=== PATIENT | female | born 1970 | race Two or more races ===

== ENCOUNTER → 2017-11-24 | Outpatient (CLI) | payer OTHER ==
[~2017-11-24] MED LIST: ALBUTEROL1.25 MG/3 IH; CARDIZEM120 MG; CEPHALEXIN500 MG PO; DOLOGEN CAPLET1 EACH PO; HYDROCODONE-CHLORPH SUSP 115ML PO; IOPHEN DM-100 MG/5 M PO; MEDROL4 MG PO; MUCINEX600 MG; PROVENTIL17 G1; SINGULAIR10 MG; SINGULAIR10 MG PO; ULTRACET PO; ZYNCOF 20-400120 ML PO
== END | disposition home or self-care (01) ==
LOC: RAD 501 13:02
DX: J44.1 Chronic obstructive pulmonary disease with (acute) exacerbation (principal)

== ENCOUNTER 2017-12-06 15:48 | Emergency (ER) | payer OTHER ==
[~2017-12-06] VITALS: Ht 167.6 cm; Wt 86.2 kg
== END 2017-12-06 21:47 | disposition home or self-care (01) ==
LOC: ER 15:48
DX: L03.115 Cellulitis of right lower limb (principal); R60.0 Localized edema

== ENCOUNTER 2017-12-08 11:39 | Outpatient (CLI) | payer OTHER | END 2017-12-08 12:02 | disposition home or self-care (01) | LOC: NUCLEAR 11:39 | DX: I82.401 Acute embolism and thrombosis of unspecified deep veins of right lower extremity (principal) ==

== ENCOUNTER 2017-12-10 15:19 | Emergency (ER) | payer OTHER ==
[~2017-12-10] VITALS: Ht 167.6 cm; Wt 88.0 kg
== END 2017-12-10 20:38 | disposition home or self-care (01) ==
LOC: ER 15:19
DX: M25.561 Pain in right knee (principal)

== ENCOUNTER 2017-12-11 09:55 | Outpatient (CLI) | payer OTHER | END 2017-12-11 12:20 | disposition home or self-care (01) | LOC: MRI 09:55 | DX: S86.919A Strain of unspecified muscle(s) and tendon(s) at lower leg level, unspecified leg, initial encounter (principal); M23.8X1 Other internal derangements of right knee | CPT/HCPCS: 73722 ==

== ENCOUNTER 2018-02-02 13:12 | Outpatient (CLI) | payer OTHER | END 2018-02-02 13:23 | disposition home or self-care (01) | LOC: LAB 13:12 | DX: M31.30 Wegener's granulomatosis without renal involvement (principal) ==

== ENCOUNTER → 2018-03-09 | Emergency (ER) | payer OTHER ==
[~2018-03-09] VITALS: Ht 167.6 cm; Wt 88.0 kg
[~2018-03-09] MED LIST changes: +CIPRO500 MG PO; +KETO10TA2 PO; +PROTONIX40 MG; +TRELEGY ELLIPT1 EACH; +ZANTAC150 M3
== END | disposition home or self-care (01) ==
LOC: ER 14:23
DX: N39.0 Urinary tract infection, site not specified (principal); R10.32 Left lower quadrant pain

== ENCOUNTER 2018-03-23 12:01 | Outpatient (CLI) | payer OTHER | END 2018-03-23 15:45 | disposition home or self-care (01) | LOC: MRI 12:01 | DX: M25.561 Pain in right knee (principal); Z96.659 Presence of unspecified artificial knee joint | CPT/HCPCS: 73721 ==

== ENCOUNTER 2018-04-21 14:33 | Outpatient (CLI) | payer OTHER | END 2018-04-21 15:26 | disposition home or self-care (01) | LOC: RAD 501 14:33 | DX: M16.11 Unilateral primary osteoarthritis, right hip (principal); M16.12 Unilateral primary osteoarthritis, left hip ==

== ENCOUNTER → 2018-04-25 11:42 | Outpatient (CLI) | payer OTHER | END | disposition home or self-care (01) | LOC: LAB 11:42 | DX: M32.19 Other organ or system involvement in systemic lupus erythematosus (principal); A69.20 Lyme disease, unspecified ==

== ENCOUNTER 2018-05-22 16:22 | Emergency (ER) | payer OTHER ==
[~2018-05-22] VITALS: Ht 167.6 cm; Wt 88.5 kg
[2018-05-22] MEDS ORDERED: PREDNISONE5 M1 (16:48)
== END 2018-05-22 23:54 | disposition home or self-care (01) ==
LOC: ER 16:22
DX: R06.02 Shortness of breath (principal)

== ENCOUNTER 2018-06-12 11:50 | Outpatient (CLI) | payer OTHER ==
[~2018-06-12 11:50] MED LIST changes: +PREDNISONE5 M1
== END 2018-06-12 11:57 | disposition home or self-care (01) ==
LOC: LAB 11:50
DX: M32.8 Other forms of systemic lupus erythematosus (principal); L03.818 Cellulitis of other sites

== ENCOUNTER 2018-06-25 09:23 | Outpatient (CLI) | payer OTHER | END 2018-06-25 09:37 | disposition home or self-care (01) | LOC: LAB 09:23 | DX: J45.998 Other asthma (principal); L08.89 Other specified local infections of the skin and subcutaneous tissue; Z13.0 Encounter for screening for diseases of the blood and blood-forming organs and certain disorders involving the immune mechanism; Z13.29 Encounter for screening for other suspected endocrine disorder; Z13.220 Encounter for screening for lipoid disorders; Z22.322 Carrier or suspected carrier of Methicillin resistant Staphylococcus aureus ==

== ENCOUNTER 2018-07-01 10:26 | Outpatient (CLI) | payer OTHER | END 2018-07-01 10:38 | disposition home or self-care (01) | LOC: LAB 10:26 | DX: N91.2 Amenorrhea, unspecified (principal); R11.0 Nausea ==

== ENCOUNTER → 2018-07-14 | Outpatient (CLI) | payer OTHER | END | disposition home or self-care (01) | LOC: RAD 501 09:04 | DX: M54.2 Cervicalgia (principal) ==

== ENCOUNTER 2018-08-18 11:25 | Outpatient (CLI) | payer OTHER | END 2018-08-18 11:36 | disposition home or self-care (01) | LOC: RAD 501 11:25 | DX: J44.1 Chronic obstructive pulmonary disease with (acute) exacerbation (principal) ==

== ENCOUNTER 2018-09-16 12:18 | Outpatient (CLI) | payer OTHER | END 2018-09-16 17:00 | disposition home or self-care (01) | LOC: MRI 12:18 | DX: M54.2 Cervicalgia (principal); M25.562 Pain in left knee | CPT/HCPCS: 72141; 73721 ==

== ENCOUNTER 2018-09-16 16:16 | Outpatient (CLI) | payer OTHER | END 2018-09-16 19:18 | disposition home or self-care (01) | LOC: LAB 16:16 | DX: M32.19 Other organ or system involvement in systemic lupus erythematosus (principal); M06.89 Other specified rheumatoid arthritis, multiple sites; D89.1 Cryoglobulinemia; M31.30 Wegener's granulomatosis without renal involvement; K75.89 Other specified inflammatory liver diseases; I25.10 Atherosclerotic heart disease of native coronary artery without angina pectoris ==

== ENCOUNTER 2018-11-10 13:08 | Outpatient (CLI) | payer OTHER | END 2018-11-10 13:22 | disposition home or self-care (01) | LOC: RAD 501 13:08 | DX: M25.561 Pain in right knee (principal); M25.562 Pain in left knee ==

== ENCOUNTER 2018-12-09 08:19 | Outpatient (CLI) | payer OTHER | END 2018-12-09 08:41 | disposition home or self-care (01) | LOC: LAB 08:19 | DX: D68.8 Other specified coagulation defects (principal); E78.2 Mixed hyperlipidemia; N39.0 Urinary tract infection, site not specified; I10 Essential (primary) hypertension; E05.80 Other thyrotoxicosis without thyrotoxic crisis or storm; R07.89 Other chest pain ==

== ENCOUNTER 2018-12-12 08:43 | Outpatient (CLI) | payer OTHER | END 2018-12-12 08:45 | disposition home or self-care (01) | LOC: SONOGRAMA 08:43 | DX: E05.90 Thyrotoxicosis, unspecified without thyrotoxic crisis or storm (principal) ==

== ENCOUNTER 2019-03-01 08:14 | Outpatient (CLI) | payer OTHER | END 2019-03-01 08:26 | disposition home or self-care (01) | LOC: LAB 08:14 | DX: M32.19 Other organ or system involvement in systemic lupus erythematosus (principal); I25.10 Atherosclerotic heart disease of native coronary artery without angina pectoris ==

== ENCOUNTER 2019-03-11 20:38 | Emergency (ER) | payer OTHER ==
[~2019-03-11] VITALS: Ht 162.6 cm; Wt 88.5 kg
[2019-03-11] MEDS ORDERED: XOPENEX0.63 MG/3 (21:05)
== END 2019-03-11 22:37 | disposition home or self-care (01) ==
LOC: ER 20:38
DX: B34.9 Viral infection, unspecified (principal)

== ENCOUNTER 2019-03-17 09:37 | Outpatient (CLI) | payer OTHER ==
[~2019-03-17 09:37] MED LIST changes: +XOPENEX0.63 MG/3
== END 2019-03-17 09:48 | disposition home or self-care (01) ==
LOC: LAB 09:37
DX: N39.0 Urinary tract infection, site not specified (principal); E88.81 Metabolic syndrome and other insulin resistance; E03.8 Other specified hypothyroidism; E55.9 Vitamin D deficiency, unspecified; Z12.11 Encounter for screening for malignant neoplasm of colon; R19.09 Other intra-abdominal and pelvic swelling, mass and lump; R97.1 Elevated cancer antigen 125 [CA 125]; N95.1 Menopausal and female climacteric states

== ENCOUNTER → 2019-03-18 10:28 | Outpatient (CLI) | payer OTHER | END | disposition home or self-care (01) | LOC: LAB 10:28 | DX: N39.0 Urinary tract infection, site not specified (principal); E88.81 Metabolic syndrome and other insulin resistance; E03.8 Other specified hypothyroidism; N93.8 Other specified abnormal uterine and vaginal bleeding; N94.6 Dysmenorrhea, unspecified; E55.9 Vitamin D deficiency, unspecified; Z12.11 Encounter for screening for malignant neoplasm of colon; R19.09 Other intra-abdominal and pelvic swelling, mass and lump; R97.1 Elevated cancer antigen 125 [CA 125]; N95.1 Menopausal and female climacteric states ==

== ENCOUNTER 2019-03-30 11:32 | Outpatient (CLI) | payer OTHER | END 2019-03-30 12:25 | disposition home or self-care (01) | LOC: LAB 11:32 | DX: R19.8 Other specified symptoms and signs involving the digestive system and abdomen (principal) ==

== ENCOUNTER 2019-04-02 11:20 | Outpatient (CLI) | payer OTHER | END 2019-04-02 11:33 | disposition home or self-care (01) | LOC: LAB 11:20 | DX: R19.7 Diarrhea, unspecified (principal) ==

== ENCOUNTER 2019-05-13 15:04 | Emergency (ER) | payer OTHER ==
[~2019-05-13] VITALS: Ht 165.1 cm; Wt 77.6 kg
[2019-05-13] MEDS ORDERED: ATROVENT HFA12.9 GM (15:16)
== END 2019-05-13 22:14 | disposition home or self-care (01) ==
LOC: ER 15:04
DX: B34.9 Viral infection, unspecified (principal)

== ENCOUNTER 2019-08-17 12:33 | Outpatient (CLI) | payer OTHER ==
[~2019-08-17 12:33] MED LIST changes: +ATROVENT HFA12.9 GM
== END 2019-08-17 12:41 | disposition home or self-care (01) ==
LOC: LAB 12:33
DX: D72.1 Eosinophilia (principal); J11.1 Influenza due to unidentified influenza virus with other respiratory manifestations; J44.1 Chronic obstructive pulmonary disease with (acute) exacerbation

== ENCOUNTER 2019-08-24 15:16 | Emergency (ER) | payer OTHER ==
[~2019-08-24] VITALS: Ht 167.6 cm; Wt 77.1 kg
[2019-08-24] MEDS ORDERED: VOLTAREN100 GM (15:26)
[2019-08-24] MEDS ORDERED: TRILOGY (15:26)
[2019-08-24] MEDS ORDERED: ALEVE220 M1 (15:27)
[2019-08-24] MEDS ORDERED: LEVALBUTER0.63 MG/3 (15:27)
== END 2019-08-24 21:15 | disposition home or self-care (01) ==
LOC: ER 15:16
DX: R19.7 Diarrhea, unspecified (principal); J06.9 Acute upper respiratory infection, unspecified; M54.2 Cervicalgia

== ENCOUNTER 2019-08-30 12:06 | Outpatient (CLI) | payer OTHER ==
[~2019-08-30 12:06] MED LIST changes: +ALEVE220 M1; +LEVALBUTER0.63 MG/3; +TRILOGY; +VOLTAREN100 GM
== END 2019-08-30 13:00 | disposition home or self-care (01) ==
LOC: EDBD 12:06 → NUCLEAR 12:06
DX: E05.90 Thyrotoxicosis, unspecified without thyrotoxic crisis or storm (principal)
CPT/HCPCS: 78013; A9512

== ENCOUNTER 2019-09-07 10:01 | Outpatient (CLI) | payer OTHER | END 2019-09-07 17:00 | disposition home or self-care (01) | LOC: EDBD 10:01 → MRI 10:01 | DX: C71.8 Malignant neoplasm of overlapping sites of brain (principal) | CPT/HCPCS: 70545; 70552 ==

== ENCOUNTER → 2019-10-04 | Outpatient (CLI) | payer OTHER | END | disposition home or self-care (01) | LOC: RAD 12:37 | DX: M25.561 Pain in right knee (principal); M25.562 Pain in left knee ==

== ENCOUNTER 2019-12-17 15:41 | Emergency (ER) | payer OTHER ==
[~2019-12-17] VITALS: Ht 157.5 cm; Wt 77.1 kg
[2019-12-17] MEDS ORDERED: [UNRECOGNIZED DRUG - OTHER] PO (16:11)
== END 2019-12-17 18:43 | disposition home or self-care (01) ==
LOC: ER 15:41
DX: K57.90 Diverticulosis of intestine, part unspecified, without perforation or abscess without bleeding (principal); K76.0 Fatty (change of) liver, not elsewhere classified

== ENCOUNTER 2019-12-22 12:34 | Outpatient (CLI) | payer OTHER ==
[~2019-12-22 12:34] MED LIST changes: +[UNRECOGNIZED DRUG - OTHER] PO
== END 2019-12-22 12:43 | disposition home or self-care (01) ==
LOC: LAB 12:34
DX: N39.0 Urinary tract infection, site not specified (principal); B34.8 Other viral infections of unspecified site

== ENCOUNTER 2020-06-09 14:03 | Outpatient (CLI) | payer OTHER | END 2020-06-09 14:22 | disposition home or self-care (01) | LOC: TOM 14:03 | PROVIDERS: ATTEND Internal Medicine Pulmonary Disease | DX: R91.8 Other nonspecific abnormal finding of lung field (principal); I63.89 Other cerebral infarction ==

== ENCOUNTER 2020-06-09 14:12 | Outpatient (CLI) | payer OTHER | END 2020-06-09 14:16 | disposition home or self-care (01) | LOC: LAB 14:12 | PROVIDERS: ATTEND Internal Medicine Pulmonary Disease | DX: R05 Cough (principal); Z20.828 Contact with and (suspected) exposure to other viral communicable diseases; R06.02 Shortness of breath ==

== ENCOUNTER 2021-02-09 11:24 | Outpatient (CLI) | payer OTHER | END 2021-02-09 11:42 | disposition home or self-care (01) | LOC: RAD 11:24 → MRI 11:30 → RAD 11:42 | DX: M54.2 Cervicalgia (principal); M50.222 Other cervical disc displacement at C5-C6 level | CPT/HCPCS: 72141 ==

== ENCOUNTER 2021-02-20 11:01 | Outpatient (CLI) | payer OTHER | END 2021-02-20 11:15 | disposition home or self-care (01) | LOC: RAD 11:01 | PROVIDERS: ATTEND Neurological Surgery | DX: M48.02 Spinal stenosis, cervical region (principal) ==

== ENCOUNTER 2021-05-16 09:30 | Outpatient (CLI) | payer OTHER | END 2021-05-16 10:16 | disposition home or self-care (01) | LOC: ASH CLINIC 09:30 | PROVIDERS: ATTEND Internal Medicine Pulmonary Disease | DX: Z23 Encounter for immunization (principal); U07.1 COVID-19 ==

== ENCOUNTER 2021-05-24 11:00 | Outpatient (CLI) | payer OTHER | END 2021-05-24 11:08 | disposition home or self-care (01) | LOC: RAD 11:00 | PROVIDERS: ATTEND Internal Medicine Pulmonary Disease | DX: R07.89 Other chest pain (principal); U07.1 COVID-19 ==

== ENCOUNTER 2021-08-22 13:38 | Emergency (ER) | payer OTHER ==
[~2021-08-22] VITALS: Ht 167.6 cm; Wt 87.1 kg
[2021-08-22] MEDS ORDERED: PRED FORTE5 ML OP (14:01)
[2021-08-22] MEDS ORDERED: PROAIR HFA8.5 GM IH (14:01)
[2021-08-22] MEDS ORDERED: ZYRTEC10 M3 PO (14:02)
[2021-08-22] MEDS ORDERED: MOBIC7.5 MG PO (14:03)
[2021-08-22] MEDS ORDERED: DICLOFENAC SODI75 MG PO (18:06)
== END 2021-08-22 18:12 | disposition home or self-care (01) ==
LOC: ER 13:38
DX: M25.562 Pain in left knee (principal)

== ENCOUNTER 2021-11-22 07:30 | Inpatient (IN) | payer OTHER ==
[~2021-11-22] VITALS: Ht 167.6 cm; Wt 86.2 kg
[~2021-11-22 07:30] MED LIST changes: +DICLOFENAC SODI75 MG PO; +MOBIC7.5 MG PO; +PRED FORTE5 ML OP; +PROAIR HFA8.5 GM IH; +ZYRTEC10 M3 PO
[2021-11-27] MEDS ORDERED: SUCRALFATE1 GM (08:00)
[2021-11-27] MEDS ORDERED: FAMOTIDINE20 MG (08:00)
[2021-11-27] MEDS ORDERED: BUDESONIDE0.5 MG/21 (08:01)
[2021-11-27] MEDS ORDERED: VITAMIN D3125 MC1 (08:01)
[2021-11-27] MEDS ORDERED: FLONASE16 GM (08:01)
[2021-11-29] MEDS ORDERED: NORFLEX100MG PO (12:31)
[2021-11-29] MEDS ORDERED: GABAPENTIN100 MG PO (12:32)
[2021-11-29] MEDS ORDERED: XARELTO10 MG PO (12:33)
[2021-11-29] MEDS ORDERED: ULTRAM50 MG PO (12:33)
== END 2021-11-29 15:53 | DRG 470 ==
LOC: O/R 11-27 05:54 → SURH 11-27 06:15 → SURG 11-27 13:04 → O/R 11-27 16:27 → SURG 11-28 11:43
PROVIDERS: ADMIT Orthopaedic Surgery; ATTEND Orthopaedic Surgery
PROC: 0SRD0J9 Replacement of Left Knee Joint with Synthetic Substitute, Cemented, Open Approach (ICD-10-PCS; principal; 2021-11-27 06:15)
DX: M17.12 Unilateral primary osteoarthritis, left knee (principal); M85.662 Other cyst of bone, left lower leg; G47.33 Obstructive sleep apnea (adult) (pediatric); J45.998 Other asthma

== ENCOUNTER 2021-11-22 12:58 | Outpatient (CLI) | payer OTHER | END 2021-11-22 13:09 | disposition home or self-care (01) | LOC: RAD 12:58 | PROVIDERS: ATTEND Orthopaedic Surgery | DX: M25.561 Pain in right knee (principal); M25.562 Pain in left knee ==

== ENCOUNTER 2022-02-01 11:04 | Outpatient (CLI) | payer OTHER ==
[~2022-02-01 11:04] MED LIST changes: +BUDESONIDE0.5 MG/21; +FAMOTIDINE20 MG; +FLONASE16 GM; +GABAPENTIN100 MG PO; +NORFLEX100MG PO; +SUCRALFATE1 GM; +ULTRAM50 MG PO; +VITAMIN D3125 MC1; +XARELTO10 MG PO
== END 2022-02-01 11:05 | disposition home or self-care (01) ==
LOC: NUCLEAR 11:04
PROVIDERS: ATTEND Internal Medicine
DX: I26.99 Other pulmonary embolism without acute cor pulmonale (principal)

== ENCOUNTER 2022-11-28 08:00 | Inpatient (IN) | payer OTHER ==
[~2022-11-28] VITALS: Ht 167.6 cm; Wt 88.0 kg
[2022-12-10] MEDS ORDERED: DILTIAZEM HCL30 MG (08:16)
== END 2022-12-13 14:01 | DRG 470 ==
LOC: SURH 12-03 07:00 → O/R 12-10 05:30 → SURH 12-10 05:30
PROVIDERS: ADMIT Orthopaedic Surgery; ATTEND Orthopaedic Surgery
PROC: 0SRC0JZ Replacement of Right Knee Joint with Synthetic Substitute, Open Approach (ICD-10-PCS; principal; 2022-12-10 10:30)
DX: M17.11 Unilateral primary osteoarthritis, right knee (principal); D62 Acute posthemorrhagic anemia; K21.9 Gastro-esophageal reflux disease without esophagitis; G47.33 Obstructive sleep apnea (adult) (pediatric)

== ENCOUNTER 2023-01-26 16:34 | Emergency (ER) | payer OTHER ==
[~2023-01-26] VITALS: Ht 167.6 cm; Wt 87.1 kg
[~2023-01-26 16:34] MED LIST changes: +DILTIAZEM HCL30 MG
== END 2023-01-26 21:17 | disposition home or self-care (01) ==
LOC: ER 16:34
DX: M54.50 Low back pain, unspecified (principal); Z88.8 Allergy status to other drugs, medicaments and biological substances; Z91.041 Radiographic dye allergy status

== ENCOUNTER 2023-01-31 13:58 | Outpatient (CLI) | payer OTHER | END 2023-01-31 14:11 | disposition home or self-care (01) | LOC: TOM 13:58 | PROVIDERS: ATTEND Internal Medicine | DX: N20.0 Calculus of kidney (principal) ==

== ENCOUNTER 2023-06-23 12:18 | Emergency (ER) | payer OTHER ==
[~2023-06-23] VITALS: Ht 167.6 cm; Wt 93.0 kg
[2023-06-23] MEDS ORDERED: ZANAFLEX2 M1 PO (16:51)
[2023-06-23] MEDS ORDERED: PERCOCET 5-3251 EACH PO (16:51)
== END 2023-06-23 17:05 | disposition home or self-care (01) ==
LOC: ER 12:18
PROVIDERS: General Practice
DX: R07.89 Other chest pain (principal); M54.9 Dorsalgia, unspecified; I10 Essential (primary) hypertension; E03.8 Other specified hypothyroidism; Z88.6 Allergy status to analgesic agent; Z91.041 Radiographic dye allergy status

== ENCOUNTER 2024-10-15 11:02 | Outpatient (CLI) | payer OTHER ==
[~2024-10-15 11:02] MED LIST changes: +PERCOCET 5-3251 EACH PO; +ZANAFLEX2 M1 PO
== END 2024-10-15 11:04 | disposition home or self-care (01) ==
LOC: NUCLEAR 11:02
PROVIDERS: ATTEND Internal Medicine
DX: I82.401 Acute embolism and thrombosis of unspecified deep veins of right lower extremity (principal)

== ENCOUNTER 2024-12-01 15:04 | Outpatient (CLI) | payer OTHER | END 2024-12-01 15:16 | disposition home or self-care (01) | LOC: RAD 15:04 | PROVIDERS: ATTEND Orthopaedic Surgery | DX: M25.561 Pain in right knee (principal); M25.562 Pain in left knee ==

== ENCOUNTER 2025-02-11 09:20 | Outpatient (CLI) | payer OTHER | END 2025-02-11 09:31 | disposition home or self-care (01) | LOC: RAD 09:20 | PROVIDERS: ATTEND Internal Medicine | DX: R05.9 Cough, unspecified (principal) ==

== ENCOUNTER → 2025-10-18 10:20 | Outpatient (CLI) | payer OTHER | END | disposition home or self-care (01) | LOC: NUCLEAR 10:00 | PROVIDERS: ATTEND Internal Medicine Pulmonary Disease | DX: I27.82 Chronic pulmonary embolism (principal) ==